=== PATIENT | female | born 1970 | race Caucasian/White ===

== ENCOUNTER 2018-02-19 19:17 | Emergency (ER) | payer OTHER, SELFPAY ==
[2018-02-19 19:19] VITALS: BP 162/91; PULSE 122; RESP 20; TEMP 37.2; O2SAT 99; BMI 33.1
--- NOTE | 2018-02-19 19:35 | ED.VISSUMM ---
- ER Visit Summary Date of Service: 02/19/18 Chief Complaint: Global headache History of Present Illness: The patient is a 48 F who had 219 extracted. She declined pain medicine. She presents with global headache. Associated with nausea and vomiting. She denies photophobia, blurred vision or loss of vision. She does plan of neck pain but not neck stiffness. She denies ringing in her ears, muffled hearing, nasal congestion or sore throat. She denies any chest pain. She denies cough or shortness of breath. She denies abdominal pain. She denies any dysuria, frequency, urgency hematuria. She denies any paresthesia, anesthesia or motor weakness. She does report lightheadedness with standing. Please read written note for complete detail Physical Examination: Blood pressure is elevated 162/91, heart rate is elevated at 122. She is afebrile. She has a washcloth on her forehead and an ice pack to the posterior neck. Head is atraumatic normocephalic. Pupils are equal round reactive. Extraocular muscles are intact. Funduscopic exam reveals normal cup-to-disc ratio. Venous pulsations noted bilaterally. TMs are pearly white with landmarks noted. Nares patent with no drainage. Posterior pharynx without erythema or exudate. Uvula is midline. There is no dysphonia or dysphasia. Trachea is midline. There is no stridor with auscultation of the neck. There is no nuchal rigidity. Heart is regular without murmur, gallop or rub. S1 and S2 are normal. Lungs are clear to auscultation with good movement of air bilaterally. Abdomen is soft nontender. Bowel sounds are slightly diminished. No petechia or purpura noted. Patient is alert and oriented ?3. Motor is 5 over 5. Sensory is intact. DTRs are symmetric with no clonus or Babinski sign. Cranial 2 through 12 are intact. Cerebellar testing is normal. Test Results: None Emergency Department Course and Treatment: IV was established she received 1 L of normal saline, Benadryl, Reglan and Toradol. Treatment Plan: Patient was reassessed at 2030. Headache has improved markedly. She sitting up smiling. She no longer has a wet cloth over her forehead or ice bag to the back of her neck. She was discharged to home with spouse with a prescription for Zofran ODT Disposition: Discharged home in stable and improved condition Impression: 1. Global headache 2. Nausea and vomiting 3. Sinus tachycardia on the monitor 4. Dehydration 5. Status post extraction of tooth #19 This note was generated with [employer] dictation software. It may contain incorrect words, spelling, and punctuation that were not noted in review of the chart prior to signing ED Disposition - Plan for ED Patient: Disposition: Home or Assisted Living Chief Complaint: Headache Instructions: ED Headache Tension, After a Tooth Extraction: Caring for Your Mouth Prescriptions: Ondansetron [Zofran Odt] 4 mg PO Q8H PRN PRN #5 tab PRN Reason: Nausea Referrals: Philipp Carrillo MD [Primary Care Provider] - As Needed
[2018-02-19] MEDS: Ketorolac 30 MG/ML Syringe IV (19:43)
[2018-02-19] MEDS: 0.9% Normal Saline 1,000 ML 999 ML IV (19:43)
[2018-02-19] MEDS: Metoclopramide 10 MG/2 ML Vial IV (19:44)
[2018-02-19] MEDS: DiphenhydrAMINE 50 MG/ML Syringe 25 MG IV (19:47)
[2018-02-19 20:45] VITALS: BP 136/88; PULSE 76; RESP 14; O2SAT 98
== END 2018-02-19 20:46 | disposition home or self-care (01) ==
PROVIDERS: Emergency Provider Emergency Medicine; PCP Family Medicine
DX: R51 Headache (principal); R11.2 Nausea with vomiting, unspecified; R00.0 Tachycardia, unspecified; E86.0 Dehydration; K08.409 Partial loss of teeth, unspecified cause, unspecified class; E66.9 Obesity, unspecified; M54.2 Cervicalgia; I10 Essential (primary) hypertension
CPT/HCPCS: 99283; J7030; A4216

== ENCOUNTER → 2021-01-02 11:15 | Outpatient (CLI) | payer OTHER, SELFPAY ==
[2021-01-05 03:07] LABS: Banana 0.91 kU/L (Class II); Carrot 0.24 kU/L (Class 0/I); Oat 0.33 kU/L (Class I); Onion 0.35 kU/L (Class I); Orange 0.25 kU/L (Class 0/I); Potato, White 0.29 kU/L (Class 0/I); Strawberry 0.28 kU/L (Class 0/I); Tomato 0.37 kU/L (Class I); Tuna <0.10 kU/L (Class 0); Yeast <0.10 kU/L (Class 0)
[2021-01-05 13:42] LABS: Egg, White 0.81 kU/L (Class II); Turkey <0.10 kU/L (Class 0)
== END ==
PROVIDERS: PCP Family Medicine; Referring Provider Otolaryngology Otolaryngology/Facial Plastic Surgery; Visit Provider Otolaryngology Otolaryngology/Facial Plastic Surgery
DX: T78.40XA Allergy, unspecified, initial encounter (principal)
CPT/HCPCS: 36415; 86003

== ENCOUNTER → 2022-09-23 | Outpatient (CLI) | payer OTHER, BC, SELFPAY ==
[2022-09-25 20:07] LABS: Egg, Whole <0.10 kU/L (Class 0); Gluten <0.10 kU/L (Class 0); Rice <0.10 kU/L (Class 0)
[2022-09-25 20:34] LABS: Banana <0.10 kU/L (Class 0); Wheat <0.10 kU/L (Class 0)
== END | disposition home or self-care (01) ==
PROVIDERS: PCP Family Medicine; Referring Provider Otolaryngology Otolaryngology/Facial Plastic Surgery; Visit Provider Otolaryngology Otolaryngology/Facial Plastic Surgery
DX: T78.40XA Allergy, unspecified, initial encounter (principal)
CPT/HCPCS: 36415; 86003